=== PATIENT | female | born 1970 | race Two or more races ===

== ENCOUNTER 2017-09-03 13:18 | Day surgery (SDC) | payer BC, OTHER ==
[~2017-09-03] VITALS: Ht 170.2 cm; Wt 63.0 kg
[2017-09-03 14:41] VITALS: Ht 170.2 cm; Wt 63.0 kg
[2017-09-03] MEDS ORDERED: CALCIUM (14:43)
[2017-09-03] MEDS ORDERED: ASPI81TA3 PO (14:43)
[2017-09-03 15:09] VITALS: BP 121/76; PULSE 76; RESP 16
[2017-09-03 15:25] VITALS: BP 98/58; PULSE 65; RESP 12
--- NOTE | 2017-09-03 15:26 | OPPN ---
Date/Time of Note Date/Time of Note DATE: 09/03/17 TIME: 15:23 Proc Note GI Procedure Date 09/03/17 Indication: screening/surveillance Pre-procedure Diagnosis Colorectal cancer screening high risk Post-procedure Diagnosis Impression: Normal colonic mucosa to cecum. Small internal hemorrhoids of no clinical significance. Plan: Follow up as scheduled] High fiber diet Annual hemoccult stool testing [Screening colonoscopy in 5years] . Procedure Performed: Colonoscopy Surgeon HAL KELLER MD See signature line Public Affairs Manager none Anesthesia Type: MAC Anesthesiologist: ROSELYN BARAHONA MD Tourniquet Time none EBL none Transfusion required none Biopsy 1: None Grafts/Implants none Tubes/Drains none Complication(s) none Disposition: home Procedure Description After informed consent, with the patient/relatives understanding the procedure, its indications and potential risks and complications, including but not limited to: Allergic reaction, bleeding, perforation, infection, and after all pertinent questions were answered to the patient's satisfaction, the patient/ relatives signed the witnessed informed consent. Following this, premedication was administered slowly IV push under careful cardiovascular and respiratory monitoring with pulse [employer], automatic blood pressure, and lunchroom monitor. Once the sedative effect was achieved, the patient was placed in the left lateral decubitus position, digital rectal examination was performed. The colonoscope was then introduced and advanced under visual control throughout all segments of the colon including: []the rectum, sigmoid, descending colon, splenic flexure, transverse colon, hepatic flexure, ascending colon and finally reaching the cecum which was clearly identified by transillumination, finger indentation and the ileocecal valve. Careful examination of the mucosa of the lower gastrointestinal tract both on insertion as well as withdrawal of the instrument disclosed the following findings: PREPARATION QUALITY: [Adequate], RECTAL EXAM: The anorectal area was visualized examined and digital rectal examination performed with the following findings: Moderate-sized external hemorrhoids with no evidence of complications. Otherwise no evidence of perirectal disease, no masses. COLONIC MUCOSA: The mucosa of all segments of the colon was carefully examined and showed the following findings: the examined mucosa appears within normal limits. There is no evidence of inflammatory changes, diverticular formation, polyps or other neoplasms, vascular malformation, or any other abnormality. Small internal hemorrhoids The instrument was then withdrawn, the patient tolerated the procedure well and was transferred out of the Endoscopy Suite awake and in good condition to continue recovery under observation. Copies To: CC: HAL KELLER MD, MORDO MD Sep 03, 2017 15:26
[2017-09-03 15:48] VITALS: BP 107/60; RESP 14
[2017-09-03] MEDS ORDERED: PROPOFOL 40 ML ONE (16:01)
== END 2017-09-03 15:51 | disposition home or self-care (01) ==
LOC: GIL 13:18
PROVIDERS: ATTEND Internal Medicine Gastroenterology
DX: Z12.11 Encounter for screening for malignant neoplasm of colon (principal); K64.8 Other hemorrhoids
CPT/HCPCS: 84703